=== PATIENT | female | born 1995 | race African-American/Black ===

== ENCOUNTER 2019-02-15 09:05 | Emergency (ER) | payer SELFPAY ==
[~2019-02-15] VITALS: Ht 167.6 cm; Wt 48.0 kg
[2019-02-15 09:22] VITALS: BP 124/96
== END 2019-02-15 11:00 | disposition home or self-care (01) ==
LOC: ER 09:05
DX: J02.9 Acute pharyngitis, unspecified (principal); Z88.0 Allergy status to penicillin
CPT/HCPCS: 99283

== ENCOUNTER 2021-06-24 12:21 | Emergency (ER) | payer MEDICAID ==
[~2021-06-24] VITALS: Ht 157.5 cm; Wt 78.0 kg
[2021-06-24 13:17] VITALS: BP 140/97
[2021-06-24] MEDS ORDERED: ALBUTEROL (0.083%) 2.5MG/3ML NEB HHN STA (16:03)
[2021-06-24] MEDS ORDERED: IPRATROPIUM BROMIDE (0.02%) 0.5MG/2.5ML NEB HHN STA (16:03)
[2021-06-24] MEDS ORDERED: PREDNISONE 20MG TABLET PO STA (16:03)
[2021-06-24] MEDS ORDERED: GUAI-741 MT (17:05)
[2021-06-24] MEDS ORDERED: P50 MT (17:05)
[2021-06-24] MEDS ORDERED: ALBU6.7H15 INH (17:05)
== END 2021-06-24 17:48 | disposition home or self-care (01) ==
LOC: ER 12:21
DX: J40 Bronchitis, not specified as acute or chronic (principal); R06.2 Wheezing; Z88.0 Allergy status to penicillin
CPT/HCPCS: 71045; 94640; 99283; J7512; Z7610

== ENCOUNTER 2022-07-15 23:57 | Emergency (ER) | payer MEDICAID ==
[~2022-07-15] VITALS: Ht 167.6 cm; Wt 47.0 kg
[~2022-07-15 23:57] MED LIST: ALBU6.7H15 INH; GUAI-741 MT; P50 MT
[2022-07-16 00:19] VITALS: BP 151/111
== END 2022-07-16 02:45 | disposition left against medical advice (07) ==
LOC: ER 23:57
DX: Z53.21 Procedure and treatment not carried out due to patient leaving prior to being seen by health care provider (principal)
CPT/HCPCS: 81025; 99281

== ENCOUNTER 2023-03-14 07:37 | Emergency (ER) | payer MEDICAID, OTHER ==
[~2023-03-14] VITALS: Ht 167.6 cm; Wt 47.7 kg
[2023-03-14 07:42] VITALS: O2SAT 99
[2023-03-14 08:02] LABS: BASOPHILS % 0.5 % (0.0-2.0); EOSINOPHILS % 1.3 % (0.0-5.0); HEMATOCRIT. 43.3 % (36.0-48.0); HEMOGLOBIN. 15.1 g/dL (12.0-16.0); MEAN CORPUSCULAR HEMOGLOBIN 33.3 pg (28.0-32.0); MEAN CORPUSCULAR HGB CONC 34.8 g/dL (31.0-37.0); MEAN CORPUSCULAR VOLUME 95.8 fL (81.0-99.0); MEAN PLATELET VOLUME 7.9 fl (7.4-10.4); MONOCYTES % 8.1 % (2.0-8.0); NEUTROPHILS % 51.1 % (40.0-76.0); PLATELET 210 x1000/uL (130-400); RED BLOOD CELL COUNT 4.52 mill/uL (4.2-5.4); RED CELL DISTRIBUTION WIDTH 14.4 % (11.6-14.6); WHITE BLOOD COUNT 5.8 x1000/uL (4.5-11.0)
[2023-03-14 08:19] LABS: ALANINE AMINOTRANSFERASE 29 IU/L (10-49); ALBUMIN 3.8 g/dL (3.2-4.8); ASPARTATE AMINOTRANSFERASE 55 IU/L (<34); BILIRUBIN TOTAL 0.5 mg/dL (0.1-1.0); CALCIUM 8.8 mg/dL (8.7-10.4); CARBON DIOXIDE 17 mEq/L (21-32); CHLORIDE 100 mEq/L (98-107); CREATININE 0.7 mg/dL (0.6-1.0); GLUCOSE 112 mg/dL (70-105); POTASSIUM 3.5 mEq/L (3.5-5.1); PROTEIN TOTAL 7.7 g/dL (6.0-8.3); SODIUM 134 mEq/L (136-145); UREA NITROGEN BLOOD 10 mg/dL (9-23)
[2023-03-14] MEDS ORDERED: ONDANSETRON HCL 4MG/2ML INJ IV STA (08:28)
[2023-03-14] MEDS ORDERED: MORPHINE SULFATE 4 MG/ML CPJ (NOT FOR IM USE) IV STA (08:28)
[2023-03-14] MEDS ORDERED: SODIUM CHLORIDE 0.9% 1,000 ML IV ONE (08:30)
[2023-03-14 10:21] LABS: CLARITY URINE CLOUDY (CLEAR); COLOR URINE YELLOW (YELLOW); GLUCOSE URINE NEGATIVE (NEGATIVE); KETONES URINE 1+ (NEGATIVE); LEUKOCYTE ESTERASE URINE NEGATIVE (NEGATIVE); NITRITE URINE NEGATIVE (NEGATIVE); OCCULT BLOOD URINE NEGATIVE (NEGATIVE); PROTEIN URINE NEGATIVE (NEGATIVE); SPECIFIC GRAVITY URINE 1.031 (1.005-1.030); UROBILINOGEN URINE 0.2 E.U./dL (0.2-1.0)
[2023-03-14 11:32] LABS: MUCUS URINE 2+ /lpf (< = 2+); SQUAMOUS EPITHELIAL CELL URINE 3+ /lpf (RARE/1+)
[2023-03-14 11:33] LABS: RBC URINE 0-2 /hpf (0-2); WBC URINE 0-2 /hpf (0-2)
[2023-03-14 11:34] LABS: BACTERIA URINE 2+
[2023-03-14] MEDS ORDERED: IOHEXOL-300 100 ML BOTTLE ONE (12:54)
[2023-03-14 13:13] VITALS: BP 157/118; PULSE 94; RESP 18; TEMP 97.7
== END 2023-03-14 18:26 | disposition left against medical advice (07) ==
LOC: ER 08:04 → CANBEDREQ 18:25 → ER 18:26
DX: K85.90 Acute pancreatitis without necrosis or infection, unspecified (principal)
CPT/HCPCS: 80053; 81003; 81025; 83690; 85025; 36415; 71045; 74177; 76705; 93005; 96361; 96374; 96375; 99285; Q9967; J2405; J2270; J7030; Z7610 ×3

== ENCOUNTER 2023-07-15 12:50 | Emergency (ER) | payer MEDICAID ==
[~2023-07-15] VITALS: Ht 167.6 cm; Wt 66.0 kg
[2023-07-15 12:52] VITALS: PULSE 88; O2SAT 98
[2023-07-15 13:36] VITALS: TEMP 98.3
[2023-07-15] MEDS: ACETAMINOPHEN 325MG TABLET PO NR (13:36)
[2023-07-15 13:45] VITALS: BP 132/76; RESP 18
[2023-07-15] MEDS: LIDOCAINE 5% PATCH TOP SCH (13:45)
[2023-07-16] MEDS ORDERED: IBUP-2028 MT (04:53)
== END 2023-07-15 19:55 | disposition home or self-care (01) ==
LOC: ER 12:57
DX: M54.50 Low back pain, unspecified (principal)
CPT/HCPCS: 81025; 99283

== ENCOUNTER 2023-07-15 23:07 | Emergency (ER) | payer MEDICAID ==
[~2023-07-15] VITALS: Ht 167.6 cm; Wt 46.0 kg
[2023-07-15 23:37] VITALS: BP 155/101; PULSE 108; RESP 15; TEMP 98.7; O2SAT 97
[2023-07-16] MEDS ORDERED: IBUP-2028 MT (04:53)
== END 2023-07-16 06:06 | disposition home or self-care (01) ==
LOC: ER 23:23
DX: S32.039A Unspecified fracture of third lumbar vertebra, initial encounter for closed fracture (principal); M54.9 Dorsalgia, unspecified; X58.XXXA Exposure to other specified factors, initial encounter; Y93.89 Activity, other specified; Y92.89 Other specified places as the place of occurrence of the external cause; Y99.8 Other external cause status
CPT/HCPCS: 72100; 81025; 93005; 99283

== ENCOUNTER 2024-10-13 19:50 | Emergency (ER) | payer MEDICAID ==
[~2024-10-13] VITALS: Ht 167.6 cm; Wt 55.0 kg
[~2024-10-13 19:50] MED LIST changes: +IBUP-2028 MT
[2024-10-13 20:13] VITALS: TEMP 36.9; O2SAT 100
[2024-10-13 23:56] LABS: BASOPHILS % 0.5 % (0.0-2.0); EOSINOPHILS % 0.0 % (0.0-5.0); HEMATOCRIT. 40.9 % (36.0-48.0); HEMOGLOBIN. 13.7 g/dL (12.0-16.0); LYMPHOCYTES % 41.8 % (20.0-50.0); MEAN PLATELET VOLUME 8.4 fl (7.4-10.4); MONOCYTES % 9.1 % (2.0-8.0); NEUTROPHILS % 48.6 % (40.0-76.0); PLATELET 204 x1000/uL (130-400); RED BLOOD CELL COUNT 4.35 mill/uL (4.2-5.4); RED CELL DISTRIBUTION WIDTH 13.9 % (11.6-14.6)
[2024-10-14 00:08] LABS: INR 0.9
[2024-10-14 00:09] LABS: CREATININE 0.8 mg/dL (0.6-1.0)
[2024-10-14 00:10] LABS: ETHANOL BLOOD < 10 mg/dL (<10); UREA NITROGEN BLOOD 7 mg/dL (9-23)
[2024-10-14 00:11] LABS: ASPARTATE AMINOTRANSFERASE 31 IU/L (<34)
[2024-10-14 00:12] LABS: BILIRUBIN DIRECT 0.2 mg/dL (<=3.0); BILIRUBIN TOTAL 0.7 mg/dL (0.1-1.0); PROTEIN TOTAL 7.8 g/dL (6.0-8.3)
[2024-10-14 00:28] LABS: HCG SCREEN NEGATIVE
[2024-10-14 00:32] LABS: *AMPHETAMINES SCREEN URINE NEGATIVE (NEGATIVE); *BARBITURATES SCREEN URINE NEGATIVE (NEGATIVE); *BENZODIAZEPINES SCREEN URINE NEGATIVE (NEGATIVE); *COCAINE SCREEN URINE NEGATIVE (NEGATIVE); METHADONE URINE SCREEN NEGATIVE (NEGATIVE); OPIATES URINE SCREEN NEGATIVE (NEGATIVE); PHENCYCLIDINE URINE SCREEN NEGATIVE (NEGATIVE)
[2024-10-14 00:33] LABS: CANNABINOID URINE SCREEN NEGATIVE (NEGATIVE); ECSTASY MDMA SCREEN URINE NEGATIVE (NEGATIVE)
[2024-10-14 00:53] LABS: CLARITY URINE CLEAR (CLEAR); COLOR URINE YELLOW (YELLOW); GLUCOSE URINE NEGATIVE (NEGATIVE); KETONES URINE 1+ (NEGATIVE); PH URINE 5.0 (4.5-8.0); PROTEIN URINE NEGATIVE (NEGATIVE); SPECIFIC GRAVITY URINE 1.021 (1.005-1.030)
[2024-10-14 00:54] LABS: LEUKOCYTE ESTERASE URINE NEGATIVE (NEGATIVE); NITRITE URINE NEGATIVE (NEGATIVE); OCCULT BLOOD URINE NEGATIVE (NEGATIVE); UROBILINOGEN URINE 0.2 E.U./dL (0.2-1.0)
[2024-10-14] MEDS ORDERED: HYDR10TA34 MT ×2 (01:01→01:02)
[2024-10-14 01:24] VITALS: BP 140/96; PULSE 92; RESP 17; O2SAT 100
== END 2024-10-14 01:28 | disposition home or self-care (01) ==
LOC: ER 19:50
DX: F41.0 Panic disorder [episodic paroxysmal anxiety] (principal); Z88.0 Allergy status to penicillin; Z79.899 Other long term (current) drug therapy
CPT/HCPCS: 36415; 80048; 80076; 80305; 80320; 81003; 84703; 85025; 93005; 99284; G0480